=== PATIENT | female | born 1980 | race Caucasian/White ===

== ENCOUNTER 2017-05-27 10:47 | Emergency (ER) | payer MEDICAID, SELFPAY ==
[2017-05-27 10:49] VITALS: BP 138/74; PULSE 75; RESP 16; TEMP 37.3; O2SAT 95; BMI 29.5
--- NOTE | 2017-05-27 10:59 | NURSING ---
NO OLD EKGS
--- NOTE | 2017-05-27 11:07 | ED.VISSUMM ---
- ER Visit Summary Date of Service: 05/27/17 Chief Complaint: Left arm/neck pain History of Present Illness: The patient is a 37 F presenting with left neck pain radiate out in her left arm for the last 3 days. It was present on awakening one morning. It is mostly in the left side of her neck/shoulder but then radiates down the lateral aspect of her arm into her fingertips. No paresthesias or weakness. No swelling. No chest pain or shortness of breath. It only occurs with certain movements and is better with certain positions. Denies direct trauma or falls. It is not exertional or pleuritic. She has no weakness or paresthesias. No history of blood clot. Physical Examination: She has paraspinal cervical tenderness on the left. No midline tenderness, erythema, or fluctuance. She has a strong distal pulse in the left upper extremity. There is no swelling. No cellulitis. The pain is worse with range of motion. No weakness. Normal reflexes. Compartments are all soft. Heart tones regular without murmur. Lungs are clear bilaterally. Test Results: None performed. Emergency Department Course and Treatment: She has no chest pain or shortness of breath at all. The pain is not exertional. It is only in her left neck/upper extremity and into her fingertips. It appears most consistent with a cervical radiculopathy. Neurologic exam is normal. I do not feel an emergent MRI is indicated. There is no weakness. She does not use IV drugs. I do not suspect paraspinal or epidural abscess. Treatment Plan: I will treat her with a Medrol Dosepak, naproxen, and muscle relaxers. She will follow-up if not improving. Disposition: Home in stable condition Impression: Initial encounter for acute cervical radiculopathy This note was generated with [employer] dictation software. It may contain incorrect words, spelling, and punctuation that were not noted in review of the chart prior to signing ED Disposition - Plan for ED Patient: Chief Complaint: Chest Pain Instructions: ED Cervical Radiculopathy Prescriptions: MethylPREDNISolone DosePak [Medrol DosePak] 4 mg PO UD #1 box Naproxen [Naprosyn] 500 mg PO BID PRN #20 tablet Tizanidine HCl [Zanaflex] 4 mg PO TID PRN #15 tablet PRN Reason: Pain Referrals: Amaury Hi III, MD [Primary Care Provider] - 3-5 Days
--- NOTE | 2017-05-27 11:15 | ED.DCSUM_ITS ---
- ER Visit Summary Date of Service: 05/27/17 Chief Complaint: Left arm/neck pain History of Present Illness: The patient is a 37 F presenting with left neck pain radiate out in her left arm for the last 3 days. It was present on awakening one morning. It is mostly in the left side of her neck/shoulder but then radiates down the lateral aspect of her arm into her fingertips. No paresthesias or weakness. No swelling. No chest pain or shortness of breath. It only occurs with certain movements and is better with certain positions. Denies direct trauma or falls. It is not exertional or pleuritic. She has no weakness or paresthesias. No history of blood clot. Physical Examination: She has paraspinal cervical tenderness on the left. No midline tenderness, erythema, or fluctuance. She has a strong distal pulse in the left upper extremity. There is no swelling. No cellulitis. The pain is worse with range of motion. No weakness. Normal reflexes. Compartments are all soft. Heart tones regular without murmur. Lungs are clear bilaterally. Test Results: None performed. Emergency Department Course and Treatment: She has no chest pain or shortness of breath at all. The pain is not exertional. It is only in her left neck/ upper extremity and into her fingertips. It appears most consistent with a cervical radiculopathy. Neurologic exam is normal. I do not feel an emergent MRI is indicated. There is no weakness. She does not use IV drugs. I do not suspect paraspinal or epidural abscess. Treatment Plan: I will treat her with a Medrol Dosepak, naproxen, and muscle relaxers. She will follow-up if not improving. Disposition: Home in stable condition Impression: Initial encounter for acute cervical radiculopathy This note was generated with [employer] dictation software. It may contain incorrect words, spelling, and punctuation that were not noted in review of the chart prior to signing ED Disposition - Plan for ED Patient: Chief Complaint: Chest Pain Instructions: ED Cervical Radiculopathy Prescriptions: MethylPREDNISolone DosePak [Medrol DosePak] 4 mg PO UD #1 box Naproxen [Naprosyn] 500 mg PO BID PRN #20 tablet Tizanidine HCl [Zanaflex] 4 mg PO TID PRN #15 tablet PRN Reason: Pain Referrals: Amaury Hi III, MD [Primary Care Provider] - 3-5 Days
[2017-05-27 11:18] VITALS: BP 132/70; PULSE 70; RESP 14; O2SAT 99
--- OUTSIDE RECORDS SUMMARY | 2017-05-27 11:22 | XMS RPT_ITS ---
:1980 Demographics Phone Unavailable Preferred Language [facility]- Marital Status Unknown Gnosticist Affiliation Unknown Race Unknown Ethnic Group Unknown Author Organization [facility] Care Team Providers Name Role Phone Ru Shen Attending Unavailable PROBLEMS PROBLEMS No Problem Records FoundPROCEDURES PROCEDURES No Procedure Records FoundRESULTS RESULTS EMERGENCY DEPARTMENT Observed: 05/27/2017 Status: F Source: [place] SUMMARY 11:15 AM [facility] REPOSITORY [facility] [id number] [place] [address]Xfcqwnczl Department Drqyqyz10/04/18 1107MR#: [id number] Acct: [id number]: TIFFANY MANDUJANO Rep #: [id number]: 1980 37 From: Aris Shen MDPCP: Amaury Hi III, MD Status: PRE ER- ER Visit SummaryDate of Service: 05/27/17Chief Complaint: Left arm/neck painHistory of Present Illness: The patient is a 37 F presenting with left neck pain radiate out inher left arm for the last 3 days. It was present on awakening one morning. It is mostly inthe left side of her neck/shoulder but then radiates down the lateral aspect of her arm intoher fingertips. No paresthesias or weakness. No swelling. No chest pain or shortness ofbreath. It only occurs with certain movements and is better with certain positions. Deniesdirect trauma or falls. It is not exertional or pleuritic. She has no weakness orparesthesias. No history of blood clot.Physical Examination : She has paraspinal cervical tenderness on the left. No midlinetenderness, erythema , or fluctuance. She has a strong distal pulse in the left upperextremity. There is no swelling. No cellulitis. The pain is worse with range of motion. Noweakness. Normal reflexes. Compartments are all soft. Heart tones regular without murmur.Lungs are clear bilaterally.Test Results: None performed.Emergency Department Course and Treatment: She has no chest pain or shortness of breath at all.The pain is not exertional. It is only in her left neck/upper extremity and into herfingertips. It appears most consistent with a cervical radiculopathy. Neurologic exam isnormal. I do not feel an emergent MRI is indicated. There is no weakness. She does not useIV drugs. I do not suspect paraspinal or epidural abscess.Treatment Plan: I will treat her with a Medrol Dosepak, naproxen, and muscle relaxers. Shewill follow -up if not improving.Disposition: Home in stable conditionImpression: Initial encounter for acute cervical radiculopathyThis note was generated with [employer] dictation software. It may contain incorrect words,spelling, and punctuation that were not noted in review of the chart prior to signingED Disposition- Plan for ED Patient:Chief Complaint: Chest PainInstructions: ED Cervical RadiculopathyPrescriptions:MethylPREDNISolone DosePak [Medrol DosePak] 4 mg PO UD #1 boxNaproxen [Naprosyn] 500 mg PO BID PRN #20 tabletTizanidine HCl [Zanaflex] 4 mg PO TID PRN #15 tabletPRN Reason: PainReferrals:Amaury Hi III, MD [Primary Care Provider] - 3-5 DaysWhat to do if you have ProblemsFor any increased pain, shortness of breath, bleeding, nausea or vomiting, chest pain, or anyunexpected problems, contact your Primary Care Provider. Call [facility] ([phone])or report to the closest Emergency Room.Call 911 if necessary.05/27/17 1115 < Electronically signed by Aris Shen MD>Date Aris Shen MDCosign Signature (If Indicated): Date CC: Amaury Hi III, MD ALLERGIES ALLERGIES DATE TYPE / CODE NAME / CODE REACTION SEVERITY SOURCE 05/27/2017 [facility]/ [id number] [address](SNOMED XNORM) Repository CT) ENCOUNTERS ENCOUNTERS ADMIT/DISCHARGE ACCOUNT ADMITTING ENCOUNTER LOCATION SOURCE NUMBER CLASS 05/27/2017 [id number] Amb[facility] [place] [address] [place] [address] ing:ED Repository PAYERS PAYERS ENCOUNTER GUARANTOR PAYER SUBSCRIBER SOURCE 05/27/2017 Primary NOT GIVENUNK [place] Insurance:SELF PAY [place] Number: Effective Repository Date:2017-05-27
== END 2017-05-27 11:22 | disposition home or self-care (01) ==
LOC: ED 11:20
PROVIDERS: Emergency Provider Emergency Medicine; Family Provider Family Medicine; PCP Family Medicine
DX: M54.12 Radiculopathy, cervical region (principal); Z72.0 Tobacco use
CPT/HCPCS: 99282

== ENCOUNTER 2018-04-12 18:15 | Emergency (ER) | payer BC, SELFPAY ==
[2018-04-12 18:16] VITALS: BP 125/83; PULSE 86; RESP 16; TEMP 36; O2SAT 98; BMI 29.7
--- NOTE | 2018-04-12 18:34 | CT_ITS ---
STUDY: CT ABDOMEN AND PELVIS WITHOUT CONTRAST REASON FOR EXAM: Female, 37 years old. Low abdominal pain and cramping. History of tubal ligation. RADIATION DOSAGE (If Supplied By Facility): CTDIvol = ( 8.39 ) mGy, DLP = ( 444.37 ) mGycm TECHNIQUE: Transaxial images were obtained from the dome of the diaphragm to the symphysis pubis without oral contrast, and without intravenous contrast. Sagittal and coronal images were reconstructed. Individualized dose optimization techniques were used for this CT. COMPARISON: Prior abdomen and pelvic CT exam of May 31, 2015 FINDINGS: The visualized lung bases are unremarkable. The visualized portions of the heart are within normal limits. Normal liver. Normal gallbladder and extrahepatic biliary system. Normal spleen. Normal pancreas. Normal bilateral adrenal glands. Normal right kidney. Normal left kidney. Normal visualized stomach. Normal small intestine. There appears to be some thickening of the descending colon which is at least in part an increase in submucosal fat. The colon is essentially collapsed with no visible stool. The appendix is visualized and appears normal. Normal abdominal aorta. Normal inferior vena cava. Normal retroperitoneum. Normal urinary bladder. Unremarkable uterus. Left ovary is identified with a tubal ligation stable. The right ovary is not clearly identified but the tubal ligation clip occurs in the posterior cul-de-sac. Negative for pelvic mass or free fluid of the pelvis. Normal abdominal wall. Normal osseous structures. CT/Abdomen/Pelvis without Cont IMPRESSION: Mild thickening of the mucosa primarily in the ascending colon. A portion of this appears to be an increase in submucosal fat; however correlate clinically for the possibility of colitis involving mostly the ascending colon. Otherwise negative for evidence of perforation, pericolonic edema or abscess formation. A normal appendix is identified. Unremarkable terminal ileum and small bowel. Negative for pelvic mass. Bilateral tubal ligation julian. Negative for free fluid in the pelvis. Otherwise normal abdomen and pelvic CT exam. Electronically Signed: Jo-Ann Robles MD at 19:57 EST , Service support ,
[2018-04-12 19:11] LABS: Bacteria 0 SEEN /hpf (None Seen); Red Blood Cells-Urine 0 SEEN /hpf (0-5); White Blood Cells 0 SEEN /hpf (0-5)
[2018-04-12 19:15] LABS: Absolute Lymphocyte Count 3.65 X10^3/ul (0.83-4.51); Absolute Neutrophil Count 3.9 X10^3/uL (2.0-7.7); Basophil# 0.03 X10^3/uL; Basophil% 0.4 % (0-1); Color, Urine Yellow (Yellow); Eosinophil# 0.08 X10^3/uL; Glucose, Dipstick Normal (Normal); Hematocrit 46.2 % (37-47); Hemoglobin 15.6 g/dl (12.0-15.0); Ketone-Dipstick 5 mg/dl (Negative); Leukocyte Esterase-Dipstick Negative /ul (Negative); Lymphocyte # 3.65 X10^3/ul (4.0); Lymphocyte % 43.7 % (19-41); Mean Corp Hgb Conc 33.8 g/gl (32-36); Mean Corpuscular Hgb 31.8 pg (27.0-32.0); Mean Corpuscular Volume 94.1 fL (81-99); Mean Platelet Vol. 10.3 fl (6.2-12.0); Monocyte# 0.68 X10^3/uL; Monocyte% 8.1 % (0-10); Neutrophil % 46.7 % (47-70); Nitrite-Dipstick Negative (Negative); Occult Blood-Urine Negative /ul (Negative); Platelet Count 226 K/mm3 (150-450); Protein-Dipstick Negative (Negative); RBC Distribution Width CV 12.4 % (11.6-14.6); RBC Distribution Width SD 41.7 fl (35.1-43.9); Red Blood Count 4.91 M/mm3 (4.2-5.4); Specific Gravity, Urine 1.015 (1.002-1.030); Urine Bilirubin Dipstick Negative (Negative); Urine Clarity Clear (Clear); Urine Urobilinogen Normal (Normal); Urine pH 6.5 (5.0 - 8.0); White Blood Count 8.4 K/mm3 (4.4-11.0)
[2018-04-12 19:16] LABS: POSITIVE COUNT NO; POSITIVE DIFFERENTIAL NO; POSITIVE MORPHOLOGY NO
[2018-04-12 19:17] LABS: Internal QC Validated? YES +Cl - CLEAR BKGD; Pregnancy, Urine Negative Negative
[2018-04-12 19:24] LABS: Squamous Epithelial Cells - UA 0-5 SEEN /hpf (5-10)
[2018-04-12 19:25] LABS: Mucous, Urine 1+ /hpf (<or=2+)
[2018-04-12 19:28] LABS: ALB/GLOB Ratio 1.2 RATIO (0.9-2.4); AST(SGOT) 19 U/L (15-37); Alanine Aminotransfer ALT/SGPT 35 U/L (13-56); Albumin, Serum 3.9 g/dL (3.2-5.0); Alkaline Phosphatase 73 U/L (45-117); Anion Gap 9 (5-15); BUN 9 mg/dL (7-18); BUN/Creat Ratio 10.3 RATIO (10-20); Calcium,Total 8.3 mg/dL (8.5-10.1); Chloride 104 mmol/L (98-107); Creatinine, Serum 0.87 mg/dL (0.55-1.02); EST Glomerular Filtration Rate 78 mL/min (>60); Est Glom Filt Rate - Afr Amer 94 mL/min (>60); Estimated Creatinine Clearance 73.95 ml/min; Globulin 3.3 g/dL (2.2-4.2); Glucose 83 mg/dL (74-106); Lipase 109 U/L (73-393); Potassium 3.7 mmol/L (3.5-5.1); Protein, Total 7.2 g/dL (6.4-8.2); Sodium Level 137 mmol/L (136-145)
--- NOTE | 2018-04-12 20:05 | ED.VISSUMM ---
- ER Visit Summary Date of Service: 04/12/18 Chief Complaint: Abdominal pain and diarrhea History of Present Illness: The patient is a 37 F who has had abdominal pain and diarrhea. Started yesterday. The pain is cramping and diffuse. She has had multiple episodes of diarrhea. She has had nausea without vomiting. No urinary symptoms. She has not had a fever and has never had any abdominal surgeries in the past. She has taken nothing for this at home. Physical Examination: Vital signs reviewed. HEENT exam unremarkable. Heart is regular rate and rhythm without murmurs. Lungs are clear to auscultation. Abdomen is soft with tenderness in the middle of the abdomen that goes from the epigastrium down to the umbilicus. Extremities reveal no edema. Skin exam normal. Neurologic exam normal. Test Results: Laboratory studies are unremarkable. CAT scan reveals questionable colitis Emergency Department Course and Treatment: Patient declined any medications here. I will treat her with Cipro and Flagyl at home for the colitis. She will follow-up with her PCP Treatment Plan: [] Disposition: Discharge Impression: Colitis This note was generated with [employer] dictation software. It may contain incorrect words, spelling, and punctuation that were not noted in review of the chart prior to signing ED Disposition - Plan for ED Patient: Chief Complaint: Abd Pain Referrals: Amaury Hi III, MD [Primary Care Provider] -
--- NOTE | 2018-04-12 20:06 | ED.DEP ---
ED Disposition - Plan for ED Patient: Disposition: Home or Assisted Living Chief Complaint: Abd Pain Instructions: ED Gastroenteritis Bacterial Prescriptions: Metronidazole [Flagyl] 500 mg PO Q8H #21 tab Ciprofloxacin [Cipro] 500 mg PO BID #14 tab Referrals: Amaury Hi III, MD [Primary Care Provider] -
[2018-04-12 20:08] VITALS: BP 136/76; PULSE 88; RESP 16; O2SAT 98
[2018-04-12] MEDS: Ciprofloxacin 500 MG Tablet PO (20:12)
[2018-04-12] MEDS: metroNIDAZOLE 500 MG Tablet PO (20:12)
== END 2018-04-12 20:13 | disposition home or self-care (01) ==
PROVIDERS: Emergency Provider Emergency Medicine; Family Provider Family Medicine; PCP Family Medicine
DX: K52.9 Noninfective gastroenteritis and colitis, unspecified (principal); Z72.0 Tobacco use
CPT/HCPCS: 74176; 80053; 81001; 81025; 83690; 85025; 99283

== ENCOUNTER 2019-01-26 19:31 | Emergency (ER) | payer BC, SELFPAY ==
[2019-01-26 19:33] VITALS: BP 116/70; PULSE 78; RESP 15; TEMP 36.7; O2SAT 98; BMI 24.9
[2019-01-26 20:11] LABS: Mucous, Urine 0 SEEN /hpf (<or=2+)
[2019-01-26 20:19] LABS: Color, Urine Brown (Yellow); Glucose, Dipstick Normal (Normal); Ketone-Dipstick 15 mg/dl (Negative); Leukocyte Esterase-Dipstick 500 /ul (Negative); Nitrite-Dipstick Positive (Negative); Occult Blood-Urine 250 /ul (Negative); Protein-Dipstick 100 mg/dl (Negative); Urine Clarity Cloudy (Clear); Urine Urobilinogen 1 mg/dl (Normal)
[2019-01-26 20:27] LABS: Urine Bilirubin Dipstick 1 mg/dL (Negative)
[2019-01-26 20:28] LABS: White Blood Cells >100 SEEN /hpf (0-5)
[2019-01-26 20:30] LABS: Bacteria 1+ /hpf (None Seen); Red Blood Cells-Urine > 100 SEEN /hpf (0-5)
[2019-01-26 20:32] LABS: Squamous Epithelial Cells - UA 0-5 SEEN /hpf (5-10)
--- NOTE | 2019-01-26 20:39 | ED.DCSUM_ITS ---
- ER Visit Summary Date of Service: 01/26/19 Chief Complaint: [Pelvic pain and hematuria] History of Present Illness: The patient is a 38 F [presents with symptoms that started earlier today. Patient states that she had sudden onset of pressure and discomfort in the suprapubic region followed by hematuria. Patient complains of intermittent discomfort that is crampy in nature and at its highest intensity is about an 8 out of 10 however currently she has no real discomfort. Patient states that she finished her menstrual period 1 week ago. She denies any fever. She denies any vomiting. She does describe frequency, urgency, and dysuria.] Physical Examination: [HEENT-PERRLA, EOMI. Cranial nerves II through XII grossly intact. TMs clear. Mucous membranes moist. No adenopathy. Cardiovascular-regular rate and rhythm without murmur or ectopy Lungs-clear to auscultation, chest wall stable without crepitus or subcu emphysema Abdomen-normoactive bowel sounds, soft, nontender, no rebound or rigidity, no peritoneal signs. Extremities-intact ?4, normal range of motion, normal pulses, atraumatic] Test Results: [Urinalysis obtained showed a leukoesterase of 500 as well as positive nitrites, greater than 100 WBCs, greater than 100 RBCs, and +1 bact eria.] Emergency Department Course and Treatment: [Patient was started on Bactrim and Azo-Standard.] Treatment Plan: She will be treated with Bactrim and Pyridium. Patient advised to follow-up with primary care physician 3 to 5 days. Patient advised to return if worsening pain, fever, vomiting, or conditions worsen anyway. [] Disposition: [Discharged home in stable condition.] Impression: [Urinary tract infection/hemorrhagic cystitis] This note was generated with [employer] Medical[employer] software. It may contain incorrect words, spelling, and punctuation that were not noted in review of the chart prior to signing ED Disposition - Plan for ED Patient: Referrals: Amaury Hi III, MD [Primary Care Provider] -
--- NOTE | 2019-01-26 20:41 | ED.DEP ---
ED Disposition - Plan for ED Patient: Instructions: Bladder Infection, Female (Adult) Prescriptions: Smz/Tmp Ds [Bactrim Ds] 1 tab PO BID #10 tab Prescription Printed Phenazopyridine HCl [Pyridium] 200 mg PO BID PRN PRN #10 tab PRN Reason: Pain Prescription Printed Referrals: Amaury Hi III, MD [Primary Care Provider] - 3-5 Days
[2019-01-26] MEDS: Phenazopyridine 95 MG Tablet 190 MG PO (20:44)
[2019-01-26] MEDS: Smz/Tmp Ds Tablet 1 TABLET PO (20:44)
[2019-01-26 20:57] VITALS: RESP 17
== END 2019-01-26 20:58 | disposition home or self-care (01) ==
PROVIDERS: Emergency Provider Emergency Medicine; Family Provider Family Medicine; PCP Family Medicine
DX: N39.0 Urinary tract infection, site not specified (principal); R31.9 Hematuria, unspecified; Z72.0 Tobacco use
CPT/HCPCS: 81001; 99283